=== PATIENT | male | born 1985 | race African-American/Black ===

== ENCOUNTER 2017-08-30 08:09 | Emergency (ER) | payer OTHER ==
[~2017-08-30] VITALS: Ht 170.2 cm; Wt 84.8 kg
--- NOTE | ~2017-08-30 | EKG ---
[address] [address] ELECTROCARDIOGRAM REPORT Name: SARABIANAVEEDTERI ABRAHAM Room #: [facility] Geno#: [id number] Admission: 08/30/17 Attend Phys: Discharge: 08/30/17 Date of : 81 Report #: [id number] THIS REPORT FOR: //name// [facility] ED Test Date: 2017-08-30 Test Time: 08:18:14 Pat Name: NAVEED SARABIA Department: Room: Gender: M [employer] Supervisor: megha : 1985 Requested By: Erum Bowen Order Number: [id number] MD: Nasir Orlando Measurements Intervals [place] Rate: 54 P: -9 WA: 127 QRS: 16 QRSD: 113 T: -8 QT: 458 QTc: 435 Interpretive Statements Sinus rhythm Probable left ventricular hypertrophy Nonspecific T abnormalities, inferior leads Compared to ECG 11/30/2015 17:28:38 T-wave abnormality now present Sinus bradycardia no longer present ST (T wave) deviation no longer present Early repolarization no longer present Electronically Signed On 08-30-2017 11:32:02 CDT by Nasir Orlando [email or web address] <ELECTRONICALLY SIGNED> By: Nasir Orlando MD 08/30/17 1132 7 7 Nasir Orlando MD /EPI
[~2017-08-30 08:09] MED LIST: ANUSOL1 EACH RC; APAP/CODEINE ELI5 M1 PO; ASPIR 8181 MG PO; CLARITIN10 MG PO; IBUPROFEN 800800 M1; LISINOPRIL-HCT1 EAC1 PO; LISINOPRIL10 MG PO; LORTABELXR PO; NOHOMEMEDICATIONS; NORCO 5-325 TA1 EACH PO; NORVASC5 MG PO; PENICILLIN VK500 M1 PO; PEPCID20 MG PO; PHENERGAN 25 MG25 M1 PO; PROTONIX40 MG PO; TRAMADOL 50 MG50 MG PO; TYLENOL325 MG PO; XANAX 0.5 MG0.5 M1 PO; ZOFRAN ODT4 MG PO
[2017-08-30 08:29] LABS: HEMATOCRIT 39.4 % (42.0-52.0); HEMOGLOBIN 13.9 gm/dL (14.0-18.0); MCH 32.8 pg (26.0-34.0); MCHC 35.3 g/dL (28.0-37.0); MCV 92.8 fL (80.0-100.0); PLATELET COUNT 241 thou/uL (150-400); RBC 4.25 mil/uL (4.50-6.00); RDW 14.6 % (10.5-14.5); WBC 3.7 thou/uL (4.0-11.0)
[2017-08-30 08:30] LABS: MANUAL DIFF YES
[2017-08-30 08:34] LABS: ANION GAP 9 mmol/L (7-16); BUN 9 mg/dL (7-18); CALCIUM 9.4 mg/dL (8.5-10.1); CHLORIDE 105 mmol/L (98-107); CO2 27 mmol/L (21-32); CREATININE 0.9 mg/dL (0.7-1.3); GLUCOSE 121 mg/dL (74-106); POTASSIUM 3.8 mmol/L (3.5-5.1); SODIUM 141 mmol/L (136-145)
[2017-08-30 08:42] LABS: TROPONIN-I < 0.04 ng/mL (<0.04-0.07)
[2017-08-30 08:59] LABS: ABSOLUTE NEUTROPHILS 1.4 thou/uL (1.4-8.2); ANISOCYTOSIS SLIGHT; TOTAL CELL COUNT 100
== END 2017-08-30 11:04 | disposition home or self-care (01) ==
LOC: ER 08:09
PROVIDERS: Emergency Medicine
DX: R07.9 Chest pain, unspecified (principal); I10 Essential (primary) hypertension; F17.210 Nicotine dependence, cigarettes, uncomplicated; F10.99 Alcohol use, unspecified with unspecified alcohol-induced disorder